=== PATIENT | female | born 1975 | race Caucasian/White ===

== ENCOUNTER 2016-09-24 07:40 | Emergency (ER) | payer OTHER ==
[~2016-09-24] VITALS: Ht 172.7 cm; Wt 73.6 kg
[~2016-09-24 07:40] MED LIST: ZOLO100T
[2016-09-24] MEDS ORDERED: ASPIRIN 81 MG CHEW TABLET PO ONE (08:30)
[2016-09-24 08:37] LABS: BASO % 0.4 % (0.0-1.0); CONTROL LINE HCG INT CTR LINE PRESENT; EOS # 0.2 K/mm3 (0.0-0.50); EOS % 2.2 % (0.0-3.0); LARGE UNSTAINED CELL # 0.1 K/mm3 (0.0-0.4); LARGE UNSTAINED CELL % 0.9 % (0.0-4.0); LYMPH # 2.1 K/mm3 (1.5-4.5); LYMPH % 24.8 % (24.0-44.0); MEAN CORPUSCULAR HEMOGLOBIN 32.7 pg (27.0-33.0); MEAN CORPUSCULAR HGB CONC 35.3 g/dl (32.0-36.5); MEAN CORPUSCULAR VOLUME 92.7 fl (80.0-96.0); MONO # 0.4 K/mm3 (0.0-0.8); MONO % 4.6 % (0.0-5.0); NEUTROPHILS # 5.4 K/mm3 (1.8-7.7); NEUTROPHILS % 67.1 % (36.0-66.0); PLATELET COUNT, AUTOMATED 154 k/mm3 (150-450); RED CELL DISTRIBUTION WIDTH 12.6 % (11.5-14.5); WHITE BLOOD COUNT 8.1 K/mm3 (4.0-10.0)
[2016-09-24 08:42] LABS: ALBUMIN 3.4 GM/DL (3.2-5.2); ALBUMIN/GLOBULIN RATIO 1.17 (1.00-1.93); ALKALINE PHOSPHATASE 79 U/L (45-117); ALT/SGPT 11 U/L (12-78); ANION GAP 4 MEQ/L (8-16); AST/SGOT 10 U/L (15-37); BILIRUBIN,DIRECT < 0.1 MG/DL (0.0-0.2); BILIRUBIN,TOTAL 0.5 MG/DL (0.2-1.0); BLOOD UREA NITROGEN 10 MG/DL (7-18); CARBON DIOXIDE LEVEL 26 MEQ/L (21-32); CHLORIDE LEVEL 109 MEQ/L (98-107); CREATININE FOR GFR 0.61 MG/DL (0.55-1.02); GLOMERULAR FILTRATION RATE > 60.0 (>58); GLUCOSE, FASTING 85 MG/DL (70-105); POTASSIUM SERUM 3.9 MEQ/L (3.5-5.1); SODIUM LEVEL 139 MEQ/L (136-145); TOTAL PROTEIN 6.3 GM/DL (6.4-8.2)
--- NOTE | 2016-09-24 09:02 | REP ---
Clinical: Chest pain . Comparison: None . Findings: The mediastinum and cardiac silhouette are stable and within normal limits for portable technique. The lung solorzano are clear without acute consolidation, effusion, or pneumothorax. Skeletal structures are intact. Impression: No acute cardiopulmonary process appreciated. Signed by Hossein Briceno MD 09/24/2016 08:54 A
[2016-09-24 13:21] VITALS: BP 117/69
--- NOTE | 2016-09-24 20:53 | ECGEPIP ---
Stationary ECG Study [facility] - ED Test Date: 2016-09-24 Pat Name: ESTELLA CHRISTIAN Department: Room: - Gender: F Small Animal Caretaker: rn : 1975 Requested By: Dayo Bah Order Number: [id number] Reading MD: Isabelle Henning Measurements Intervals [place] Rate: 73 P: 62 NV: 124 QRS: 57 QRSD: 90 T: 48 QT: 375 QTc: 415 Interpretive Statements SINUS RHYTHM NO PRIOR FOR COMPARISON Electronically Signed On 09-24-2016 20:52:49 EDT by Isabelle Henning
--- NOTE | 2016-09-24 20:54 | ECGEPIP ---
Stationary ECG Study [facility] - ED Test Date: 2016-09-24 Pat Name: ESTELLA CHRISTIAN Department: Room: - Gender: F Agile Java Developer: rn : 1975 Requested By: Dayo Bah Order Number: [id number] Reading MD: Isabelle Henning Measurements Intervals [place] Rate: 75 P: 61 MI: 130 QRS: 51 QRSD: 89 T: 42 QT: 380 QTc: 425 Interpretive Statements SINUS RHYTHM NSTTW ABNORMALITY Electronically Signed On 09-24-2016 20:54:27 EDT by Isabelle Henning
--- NOTE | 2016-09-24 20:57 | ECGEPIP ---
Stationary ECG Study [facility] - ED Test Date: 2016-09-24 Pat Name: ESTELLA CHRISTIAN Department: Room: - Gender: F Mechanical Development Engineer: tk : 1975 Requested By: Dayo Bah Order Number: [id number] Reading MD: Isabelle Henning Measurements Intervals [place] Rate: 51 P: 67 [place]: 128 QRS: 68 QRSD: 88 T: 52 QT: 430 QTc: 399 Interpretive Statements SINUS BRADYCARDIA Electronically Signed On 09-24-2016 20:57:49 EDT by Isabelle Henning
== END 2016-09-24 13:35 | disposition home or self-care (01) ==
LOC: M ED 07:40
DX: R07.89 Other chest pain (principal); F17.200 Nicotine dependence, unspecified, uncomplicated; R00.1 Bradycardia, unspecified; R94.31 Abnormal electrocardiogram [ECG] [EKG]; Z88.2 Allergy status to sulfonamides

== ENCOUNTER 2017-06-20 20:59 | Emergency (ER) | payer OTHER | END 2017-06-20 23:47 | disposition left against medical advice (07) | LOC: M ED 20:59 | DX: Z53.29 Procedure and treatment not carried out because of patient's decision for other reasons (principal) ==

== ENCOUNTER → 2017-12-27 | Outpatient (CLI) | payer OTHER | LOC: M ADAMS 10:59 | DX: M54.2 Cervicalgia (principal) | CPT/HCPCS: 72050 ==

== ENCOUNTER → 2018-01-23 | Outpatient (REF) | payer OTHER ==
[2018-01-23 13:24] LABS: BASO % 0.4 % (0.0-1.0); EOS # 0.1 10^3/uL (0.0-0.50); EOS % 1.2 % (0.0-3.0); HEMATOCRIT 42.4 % (36.0-47.0); HEMOGLOBIN 14.5 g/dl (12.0-15.5); IMMATURE GRANULOCYTE % 0.3 % (0-3.0); LYMPH # 2.2 10^3/uL (1.5-4.5); MEAN CORPUSCULAR HEMOGLOBIN 33.2 pg (27.0-33.0); MEAN CORPUSCULAR HGB CONC 34.2 g/dl (32.0-36.5); MONO # 0.6 10^3/uL (0.0-0.8); MONO % 6.4 % (0.0-5.0); NEUTROPHILS # 6.9 10^3/uL (1.8-7.7); NEUTROPHILS % 69.7 % (36.0-66.0); PLATELET COUNT, AUTOMATED 185 10^3/uL (150-450); RED BLOOD COUNT 4.37 10^6/uL (4.00-5.40); RED CELL DISTRIBUTION WIDTH 14.1 % (11.5-14.5)
[2018-01-23 14:23] LABS: ALBUMIN 3.5 GM/DL (3.2-5.2); ALBUMIN/GLOBULIN RATIO 1.21 (1.00-1.93); ALKALINE PHOSPHATASE 107 U/L (45-117); ALT/SGPT 16 U/L (12-78); ANION GAP 9 MEQ/L (8-16); AST/SGOT 13 U/L (7-37); BILIRUBIN,TOTAL 0.6 MG/DL (0.2-1.0); BLOOD UREA NITROGEN 11 MG/DL (7-18); CALCIUM LEVEL 8.4 MG/DL (8.5-10.1); CARBON DIOXIDE LEVEL 24 MEQ/L (21-32); CHLORIDE LEVEL 108 MEQ/L (98-107); CHOLESTEROL LEVEL 200 MG/DL (<200); CHOLESTEROL RISK RATIO 3.703 (<5); CREATININE FOR GFR 0.71 MG/DL (0.55-1.30); GLOMERULAR FILTRATION RATE > 60.0 (>58); GLUCOSE, FASTING 74 MG/DL (70-100); HDL CHOLESTEROL 54 MG/DL (>40); LDL CHOLESTEROL 119 MG/DL (<100); NON-HDL-C 146 MG/DL; POTASSIUM SERUM 4.4 MEQ/L (3.5-5.1); SODIUM LEVEL 141 MEQ/L (136-145); TOTAL 25(OH) VITAMIN D 14.8 NG/ML (30.0-100.0); TOTAL PROTEIN 6.4 GM/DL (6.4-8.2); TRIGLYCERIDES LEVEL 135 MG/DL (<150)
== END ==
LOC: M SFHCADAM 08:27
DX: Z13.220 Encounter for screening for lipoid disorders (principal); Z13.0 Encounter for screening for diseases of the blood and blood-forming organs and certain disorders involving the immune mechanism

== ENCOUNTER → 2019-02-06 | Outpatient (REF) | payer OTHER ==
[~2019-02-06] MED LIST changes: +IBUP-1022 PO; +NAPR-885 PO
== END ==
LOC: M SFHCADAM 09:37
PROVIDERS: ATTEND Physician Assistant Medical
DX: E55.9 Vitamin D deficiency, unspecified (principal)

== ENCOUNTER → 2019-07-13 | Outpatient (CLI) | payer OTHER ==
[~2019-07-13] MED LIST changes: +GASTROGRAFIN SOLUTION 30ML (Q9963) As Ordered ONE; +ISOVUE-370 76% 100ML VIAL As Ordered ONE
--- NOTE | 2019-07-13 15:36 | REP ---
REASON: Left lower quadrant pain. PRIORS: None. CONTRAST: 100 mL Isovue-370. The lung bases are clear. The liver, gallbladder, spleen, pancreas, and adrenal glands are unremarkable. There is an incidental millimeter sized cyst in the anterior segment of the right lobe of the liver and an even smaller cyst in the medial segment of the left lobe. Small focal areas of low density are seen in each kidney, the largest is in the superior pole of the right kidney measuring 1.3 cm and having water density Hounsfield unit readings. The other focal areas of low density are too small for precise CT characterization, but likely represent tiny renal cortical cysts. The abdominal aorta and para-aortic regions are within normal limits. There is no free fluid or free air in the abdomen. The intra-abdominal bowel loops and their mesenteries are within normal limits. CT PELVIS: In the left hemipelvis, there are two wall enhancing low density structures, the largest of which measures approximately 1.6 cm. These abut one another and have higher than water density Hounsfield unit readings. In the right posterior hemipelvis, there is a non wall enhancing 2.4 cm sized low density structure which has water density Hounsfield unit readings. No free air or free fluid is seen in the pelvis. There is no pelvic adenopathy. Bone window technique throughout the examination shows the osseous structures to be within normal limits. IMPRESSION: 1. Complex, probably hemorrhagic left ovarian dominant follicle/cyst. 2. Simple right ovarian dominant follicle/small cyst. 3. Simple bilateral renal cysts are suspected, as described above. 4. Incidental tiny hepatic cysts. Electronically Signed by Adelfo Morales DO 07/13/2019 03:43 P
== END ==
LOC: M RAD 09:25
PROVIDERS: ATTEND Physician Assistant Medical
DX: R10.31 Right lower quadrant pain (principal); R11.0 Nausea; K76.89 Other specified diseases of liver; N83.202 Unspecified ovarian cyst, left side; N83.201 Unspecified ovarian cyst, right side
CPT/HCPCS: 74177; Q9963; Q9967

== ENCOUNTER → 2019-08-01 | Outpatient (REF) | payer OTHER ==
[~2019-08-01] MED LIST changes: -GASTROGRAFIN SOLUTION 30ML (Q9963) As Ordered ONE; -ISOVUE-370 76% 100ML VIAL As Ordered ONE
== END ==
LOC: M PLALAB 10:14
PROVIDERS: ATTEND Obstetrics & Gynecology
DX: N93.9 Abnormal uterine and vaginal bleeding, unspecified (principal); Z53.8 Procedure and treatment not carried out for other reasons

== ENCOUNTER → 2019-08-22 | Outpatient (CLI) | payer OTHER ==
[2019-08-22 17:47] LABS: HEMATOCRIT 44.7 % (36.0-47.0); HEMOGLOBIN 15.5 g/dl (12.0-15.5); MEAN CORPUSCULAR HEMOGLOBIN 34.1 pg (27.0-33.0); MEAN CORPUSCULAR HGB CONC 34.7 g/dl (32.0-36.5); MEAN CORPUSCULAR VOLUME 98.2 fl (80.0-96.0); PLATELET COUNT, AUTOMATED 217 10^3/uL (150-450); RED BLOOD COUNT 4.55 10^6/uL (4.00-5.40)
[2019-08-22 17:56] LABS: FREE T4 0.94 NG/DL (0.76-1.46); THYROID STIMULATING HORMONE 1.58 uIU/ML (0.358-3.740)
== END ==
LOC: M PLALAB 14:13
PROVIDERS: ATTEND Obstetrics & Gynecology
DX: N93.9 Abnormal uterine and vaginal bleeding, unspecified (principal); R87.618 Other abnormal cytological findings on specimens from cervix uteri

== ENCOUNTER → 2019-09-07 | Outpatient (CLI) | payer OTHER ==
[~2019-09-07] MED LIST changes: +OMEP-221 PO; +PERCOCET PO; +VITA50005 PO
== END ==
LOC: M LABSMTC 09:39
PROVIDERS: ATTEND Anesthesiology
DX: Z01.818 Encounter for other preprocedural examination (principal); Z11.59 Encounter for screening for other viral diseases
CPT/HCPCS: C9803; U0003

== ENCOUNTER 2019-09-10 07:00 | Day surgery (SDC) | payer OTHER ==
[~2019-09-10] VITALS: Ht 172.7 cm; Wt 79.1 kg
[~2019-09-10 07:00] MED LIST changes: +LR 1,000 ML IV ONE; -PERCOCET PO; +ceFAZolin SOD 2 GM in IV 1 EA IV ONE
[2019-09-10] MEDS ORDERED: METHYLENE BLUE 0.5% (5MG/ML) 10 ML AMP (PROVAYBLUE) As Ordered ONE (07:11)
[2019-09-10] MEDS ORDERED: BUPIVACAINE HCL 0.25% 30ML VIAL As Ordered ONE (07:11)
[2019-09-10] MEDS ORDERED: ROCURONIUM BROMIDE 50 MG/5 ML VIAL As Ordered ONE ×2 (07:23→08:28)
[2019-09-10] MEDS ORDERED: fentaNYL 250 MCG/5 ML INJECTION (J3010) As Ordered ONE (07:23)
[2019-09-10] MEDS ORDERED: MIDAZOLAM INJ 2MG/2ML VIAL (J2250 PER 1MG) As Ordered ONE (07:23)
[2019-09-10] MEDS ORDERED: propofoL 200 MG/20 ML VIAL As Ordered ONE (07:23)
[2019-09-10] MEDS ORDERED: LIDOCAINE 2% 100MG/5ML SDV (FOR ANES.) As Ordered ONE (07:23)
[2019-09-10] MEDS ORDERED: dexameTHASONE 4 MG/ML 1ML VIAL (J1100 PER 1MG) As Ordered ONE (07:23)
[2019-09-10 07:38] LABS: HEMATOCRIT 46.6 % (36.0-47.0); HEMOGLOBIN 16.1 g/dl (12.0-15.5); MEAN CORPUSCULAR HGB CONC 34.5 g/dl (32.0-36.5); MEAN CORPUSCULAR VOLUME 98.5 fl (80.0-96.0); PLATELET COUNT, AUTOMATED 204 10^3/uL (150-450); RED BLOOD COUNT 4.73 10^6/uL (4.00-5.40); WHITE BLOOD COUNT 8.6 10^3/uL (4.0-10.0)
[2019-09-10] MEDS ORDERED: LACRILUBE (AKWA TEARS) OPHTH OINT 3.5 GM As Ordered ONE (08:00)
[2019-09-10] MEDS ORDERED: ACETAMINOPHEN 1000MG 100ML IV BTL (OFIRMEV) (J0131 PER 10MG) As Ordered ONE (08:18)
[2019-09-10] MEDS ORDERED: METOCLOPRAMIDE INJ 10MG/2ML VIAL (J2765 PER 1) As Ordered ONE (08:37)
[2019-09-10] MEDS ORDERED: HYDROmorphone HCL 2 MG/ML 1ML VIAL (J1170) As Ordered ONE (09:04)
[2019-09-10] MEDS ORDERED: SUGAMMADEX SODIUM 500 MG/5 ML VIAL (BRIDION) As Ordered ONE (09:46)
[2019-09-10] MEDS ORDERED: PROMETHAZINE INJ 25 MG/ML VIAL (J2550) IV PRN (10:30)
[2019-09-10] MEDS ORDERED: LR 1,000 ML IV SCH ×2 (10:30)
[2019-09-10] MEDS ORDERED: fentaNYL 100 MCG/2 ML INJECTION (J3010) IV PRN (10:30)
[2019-09-10] MEDS ORDERED: oxyCODONE 5MG TAB PO PRN (10:30)
[2019-09-10] MEDS ORDERED: ONDANSETRON 4MG/2ML VIAL IV PRN (10:30)
[2019-09-10] MEDS ORDERED: PERCOCET 5MG/325MG TAB PO PRN ×2 (10:30)
--- NOTE | 2019-09-10 10:56 | ROOPDOC ---
[facility] Report Of Operation Report of Operation DATE OF PROCEDURE: 09/10/19 PREOPERATIVE DIAGNOSIS: 1. Pelvic pain. 2. Dysmenorrhea. 3. Abnormal uterine bleeding. POSTOPERATIVE DIAGNOSIS: 1. Pelvic pain. 2. Dysmenorrhea. 3. Abnormal uterine bleeding. 4. Endometriosis PROCEDURE PERFORMED: 1. Robotic-assisted laparoscopic hysterectomy with bilateral salpingo-oophorectomy. 2. Cystoscopy. SURGEON: Joanie Ruiz MD TROLLEY COLLECTOR: Jocelyn Dan NP ANESTHESIA: General endotracheal anesthesia. ESTIMATED BLOOD LOSS: 150 mL. INTRAVENOUS FLUIDS: 1500 mL lactated Ringer's solution. URINE OUTPUT: 50 mL. SPECIMEN: Cervix, uterus, bilateral fallopian tubes, and ovaries. PREOPERATIVE ANTIBIOTICS: 2 grams of Ancef. INFECTION CLASSIFICATION: 2. OPERATIVE FINDINGS: Densely adherent right ovary to the posterior cul-de-sac, posterior cul-de-sac was partially obliterated with endometriosis. Normal- appearing left ovary and uterus CYSTOSCOPIC FINDINGS: Revealed normal bladder mucosa. No foreign bodies were observed. Bilateral ureteral jets were observed during the cystoscopy. DESCRIPTION OF OPERATION: After informed consent was obtained and written consent was reviewed, the patient brought to the operating room where general endotracheal anesthesia was obtained. She was then placed in lithotomy position and was prepped and draped in a normal sterile fashion. A time out in the operating room was then performed identifying the patient, the procedure be performed, as well as, drug allergies. Speculum was then placed revealing the cervix. Anterior and posterior aspect of the cervix stitched with #0 Vicryl. The uterus then sounded to. 8 cm. A large VCare uterine manipulator was advanced through cervical os for means to manipulate the uterus. Uterine balloon was then insufflated with 7 mL of air. The cervical cap was placed over the cervix and the vaginal sleeve was advanced down into the vagina. Instruments were then removed. A Sinclair catheter was placed and set to gravity. Gloves were changed. Attention was turned to the patient's abdomen where a Veress needle was placed through the umbilicus. A pneumoperitoneum was then obtained with CO2 gas. The supraumbilical area was then infused 0.25% Marcaine and incision was made in this area. 8 mm trocar and sleeve was advanced through this incision. The laparoscope was then replaced revealing intra-abdominal placement. Three additional port sites were placed, one to the patient's right side of her umbilicus and two to the left side. Each one of these port sites were infused with 0.25% Marcaine Incision was made in each one of these areas and 8 mm trocars and sleeves were advanced through each one of these incisions under direct visualization. Next, da David was then advanced to the patient's table and was docked utilizing the camera arm and two operative arms. Using a vessel sealer, the infundibulopelvic ligament bilaterally was cauterized and ligated with good hemostasis noted. Further dissection using a vessel sealer was done along the round ligaments bilaterally. The anterior lip of the broad ligaments were then skeletonized along the bladder creating a bladder flap. The remainder of the broad and cardinal ligaments were then cauterized and ligated with good hemostasis noted. The uterine arteries were then skeletonized bilaterally and cauterized and ligated with good hemostasis noted. Vessel sealer was then replaced with the monopolar scissor. Anterior and posterior colpotomies were made. The uterus was then removed vaginally with good hemostasis noted. The vaginal cuff was then closed using a #2-0 V-Loc system in a running fashion. Surgical sites then inspected and found to be hemostatic. The abdomen was then irrigated and suctioned. Megan was then applied over the surgical solorzano. Next, cystoscopy was then performed. Sinclair catheter was removed from the patient's bladder. The cystoscope was advanced transurethrally through the bladder. Cystoscopy was then performed revealing normal bladder mucosa, bilateral jets were observed and no foreign bodies. The bladder was then drained. Gloves were changed. Attention was turned to the patient's abdomen where all four skin incisions closed with #4-0 Monocryl was dressed with Dermabond. The patient was then taken out of lithotomy position, was awakened general anesthesia and taken to recovery in stable condition. Jocelyn Dan, my registered nurse surgical services, played an essential role during surgery. She assisted with port placement, tissue retraction and identification of structures, as well as, incision closure. Counts were correct. JOANIE RUIZ MD. Sep 10, 2019 10:56
[2019-09-10 12:00] VITALS: BP 143/88
[2019-09-10 12:30] VITALS: BP 139/86
[2019-09-10 13:30] VITALS: BP 132/80
[2019-09-10 14:30] VITALS: BP 140/82
[2019-09-10 15:30] VITALS: BP 126/68
[2019-09-10] MEDS ORDERED: KETOROLAC 30 MG/ML 1ML VIAL IV PRN (16:00)
[2019-09-10 16:30] VITALS: BP 146/88
[2019-09-10] MEDS ORDERED: PERCOCET PO (17:44)
== END 2019-09-10 17:45 | disposition home or self-care (01) ==
LOC: M SDC 07:00 → M PED 11:55 → M SDC 17:45
PROVIDERS: ATTEND Obstetrics & Gynecology
DX: N94.6 Dysmenorrhea, unspecified (principal); N92.0 Excessive and frequent menstruation with regular cycle; R10.2 Pelvic and perineal pain; N72 Inflammatory disease of cervix uteri; N80.0 Endometriosis of uterus; K21.9 Gastro-esophageal reflux disease without esophagitis; Z79.899 Other long term (current) drug therapy; Z88.2 Allergy status to sulfonamides
CPT/HCPCS: 36415; 58571; 85027; 86850; 86900; 86901; 88307; J0131; J0690; J1100; J1170; J2250; J2765; J3010; Q9968

== ENCOUNTER → 2020-02-25 | Outpatient (REF) | payer OTHER ==
[~2020-02-25] MED LIST changes: -LR 1,000 ML IV ONE; +PERCOCET PO; -ceFAZolin SOD 2 GM in IV 1 EA IV ONE
[2020-02-25 12:51] LABS: BASO # 0.1 10^3/uL (0.0-0.2); BASO % 0.5 % (0.0-1.0); EOS # 0.2 10^3/uL (0.0-0.5); HEMATOCRIT 48.2 % (36.0-47.0); HEMOGLOBIN 15.8 g/dl (12.0-15.5); LYMPH # 2.4 10^3/uL (1.5-5.0); LYMPH % 24.5 % (24.0-44.0); MEAN CORPUSCULAR HEMOGLOBIN 33.4 pg (27.0-33.0); MEAN CORPUSCULAR HGB CONC 32.8 g/dl (32.0-36.5); MEAN CORPUSCULAR VOLUME 101.9 fl (80.0-96.0); MONO # 0.7 10^3/uL (0.0-0.8); MONO % 6.7 % (0.0-5.0); NEUTROPHILS # 6.5 10^3/uL (1.5-8.5); PLATELET COUNT, AUTOMATED 207 10^3/uL (150-450); RED BLOOD COUNT 4.73 10^6/uL (4.00-5.40); WHITE BLOOD COUNT 9.9 10^3/uL (4.0-10.0)
[2020-02-25 13:26] LABS: ALBUMIN 3.7 GM/DL (3.2-5.2); ALT/SGPT 32 U/L (12-78); BILIRUBIN,TOTAL 0.5 MG/DL (0.2-1.0); BLOOD UREA NITROGEN 7 MG/DL (7-18); CALCIUM LEVEL 8.7 MG/DL (8.5-10.1); CARBON DIOXIDE LEVEL 29 MEQ/L (21-32); CHLORIDE LEVEL 109 MEQ/L (98-107); CHOLESTEROL LEVEL 250 MG/DL (<200); CHOLESTEROL RISK RATIO 4.716 (<5); CREATININE FOR GFR 0.91 MG/DL (0.55-1.30); GLOMERULAR FILTRATION RATE > 60.0 (>58); GLUCOSE, FASTING 81 MG/DL (70-100); HDL CHOLESTEROL 53 MG/DL (>40); LDL CHOLESTEROL 161 MG/DL (<100); NON-HDL-C 197 MG/DL; POTASSIUM SERUM 5.1 MEQ/L (3.5-5.1); SODIUM LEVEL 141 MEQ/L (136-145); TOTAL 25(OH) VITAMIN D 25.8 NG/ML (30.0-100.0); TOTAL PROTEIN 6.9 GM/DL (6.4-8.2); TRIGLYCERIDES LEVEL 178 MG/DL (<150)
== END ==
LOC: M SFHCADAM 08:17
PROVIDERS: ATTEND Physician Assistant Medical
DX: F33.42 Major depressive disorder, recurrent, in full remission (principal); F17.210 Nicotine dependence, cigarettes, uncomplicated; E55.9 Vitamin D deficiency, unspecified

== ENCOUNTER → 2020-08-19 | Outpatient (CLI) | payer OTHER ==
--- NOTE | 2020-08-19 09:10 | REP ---
INDICATION: ACUTE PAIN OF LEFT KNEE COMPARISON: None. TECHNIQUE: AP, lateral, bilateral oblique and sunrise views. FINDINGS: The osseous structures and joint spaces are intact and normal. There is no evidence for acute fracture or dislocation. No joint effusion is appreciated. Surrounding soft tissues are unremarkable. No subcutaneous emphysema or radiodense foreign body. IMPRESSION: Normal examination. No acute fracture or dislocation. <Electronically signed by Hossein Briceno > 08/19/20 [id number]
== END ==
LOC: M ADAMS 08:38
PROVIDERS: ATTEND Physician Assistant
DX: M25.562 Pain in left knee (principal)

== ENCOUNTER → 2020-10-22 | Outpatient (CLI) | payer OTHER ==
[~2020-10-22] MED LIST changes: +ERGO500029 PO; -VITA50005 PO
--- NOTE | 2020-10-22 11:40 | REP ---
INDICATION: LT KNEE PAIN ? MEDIAL MENISCUS. COMPARISON: Radiographs 08/19/2020. TECHNIQUE: Multiple sequences obtained in the axial, coronal and sagittal planes. FINDINGS: Menisci: Intact, no tear. Cruciate ligaments: Intact. Collateral ligaments: Intact. Extensor mechanism/patellar retinacula: Intact. Cartilage: Smooth, no osteochondral defect. There is mild global chondromalacia. Bone marrow: Normal signal, no edema or occult fracture. Joint fluid: There is a [id number] joint effusion. Popliteal region: Lobulated Mai's cyst in the medial popliteal fossa has a maximum craniocaudal length of approximately 5.0 cm, a maximum width approximately 1 cm. Mild edema in the medial gastrocnemius muscle suggests a strain. IMPRESSION: No evidence of internal derangement. Suspect strain of the medial head of gastrocnemius muscle. Mild to moderate joint effusion. Mai's cyst. <Electronically signed by Berry Delarosa > 10/22/20 [id number]
== END ==
LOC: M RAD 08:02
PROVIDERS: ATTEND Orthopaedic Surgery Adult Reconstructive Orthopaedic Surgery
DX: S83.242A Other tear of medial meniscus, current injury, left knee, initial encounter (principal)

== ENCOUNTER → 2021-04-15 | Outpatient (REF) ==
[~2021-04-15] MED LIST changes: -OMEP-221 PO; +OMEP40CA5 PO
== END ==
LOC: M PLAIMG 09:55
PROVIDERS: ATTEND Internal Medicine
DX: Z00.00 Encounter for general adult medical examination without abnormal findings (principal)

== ENCOUNTER → 2021-05-18 | Outpatient (REF) | payer OTHER ==
[2021-05-18 12:53] LABS: BASO % 0.5 % (0.0-1.0); EOS # 0.2 10^3/uL (0.0-0.5); EOS % 2.4 % (0.0-3.0); HEMATOCRIT 51.2 % (36.0-47.0); HEMOGLOBIN 17.3 g/dl (12.0-15.5); LYMPH # 2.7 10^3/uL (1.5-5.0); LYMPH % 30.4 % (24.0-44.0); MEAN CORPUSCULAR HEMOGLOBIN 33.4 pg (27.0-33.0); MEAN CORPUSCULAR HGB CONC 33.8 g/dl (32.0-36.5); MEAN CORPUSCULAR VOLUME 98.8 fl (80.0-96.0); MONO # 0.7 10^3/uL (0.0-0.8); MONO % 7.6 % (2.0-8.0); NEUTROPHILS # 5.2 10^3/uL (1.5-8.5); NEUTROPHILS % 58.8 % (36.0-66.0); PLATELET COUNT, AUTOMATED 208 10^3/uL (150-450); RED BLOOD COUNT 5.18 10^6/uL (4.00-5.40); WHITE BLOOD COUNT 8.8 10^3/uL (4.0-10.0)
[2021-05-18 14:24] LABS: ALBUMIN 3.6 GM/DL (3.2-5.2); ALT/SGPT 27 U/L (12-78); BILIRUBIN,TOTAL 0.7 MG/DL (0.2-1.0); BLOOD UREA NITROGEN 13 MG/DL (7-18); CARBON DIOXIDE LEVEL 30 MEQ/L (21-32); CHLORIDE LEVEL 106 MEQ/L (98-107); CHOLESTEROL LEVEL 294 MG/DL (<200); CHOLESTEROL RISK RATIO 6.391 (<5); CREATININE FOR GFR 0.78 MG/DL (0.55-1.30); GLOMERULAR FILTRATION RATE > 60.0 (>58); GLUCOSE, FASTING 85 MG/DL (70-100); HDL CHOLESTEROL 46 MG/DL (>40); LDL CHOLESTEROL 186 MG/DL (<100); NON-HDL-C 248 MG/DL; POTASSIUM SERUM 4.7 MEQ/L (3.5-5.1); SODIUM LEVEL 139 MEQ/L (136-145); TRIGLYCERIDES LEVEL 311 MG/DL (<150)
== END ==
LOC: M SFHCADAM 09:17
PROVIDERS: ATTEND Physician Assistant Medical
DX: F33.42 Major depressive disorder, recurrent, in full remission (principal); E55.9 Vitamin D deficiency, unspecified; E78.2 Mixed hyperlipidemia

== ENCOUNTER → 2022-01-15 | Outpatient (CLI) | payer OTHER | LOC: M SOG 08:32 | PROVIDERS: ATTEND Orthopaedic Surgery Adult Reconstructive Orthopaedic Surgery | DX: M25.561 Pain in right knee (principal) ==

== ENCOUNTER → 2022-03-31 | Outpatient (CLI) | payer OTHER | LOC: M ADAMS 10:33 | PROVIDERS: ATTEND Physician Assistant Medical | DX: M54.2 Cervicalgia (principal); M54.6 Pain in thoracic spine; M54.50 Low back pain, unspecified ==

== ENCOUNTER → 2022-03-31 | Outpatient (REF) | payer OTHER | LOC: M SFHCADAM 10:27 | PROVIDERS: ATTEND Physician Assistant Medical | DX: M54.50 Low back pain, unspecified (principal); M54.2 Cervicalgia; M54.6 Pain in thoracic spine ==

== ENCOUNTER → 2025-01-07 | Outpatient (CLI) | payer OTHER ==
[~2025-01-07] MED LIST changes: -IBUP-1022 PO; +IBUP600T42 PO
== END ==
LOC: M OUTALCOH 09:31
PROVIDERS: ATTEND Psychiatry & Neurology Psychiatry
DX: Z03.89 Encounter for observation for other suspected diseases and conditions ruled out (principal)

== ENCOUNTER 2025-01-17 09:00 | Outpatient (RCR) | payer OTHER | END 2025-01-18 | LOC: M OUTALCOH 09:00 | PROVIDERS: ATTEND Psychiatry & Neurology Psychiatry | DX: F10.10 Alcohol abuse, uncomplicated (principal) ==

== ENCOUNTER 2025-02-13 09:56 | Outpatient (RCR) | payer OTHER | END 2025-02-17 | LOC: M OUTALCOH 09:56 | PROVIDERS: ATTEND Psychiatry & Neurology Psychiatry | DX: F10.10 Alcohol abuse, uncomplicated (principal) ==

== ENCOUNTER 2025-03-13 10:00 | Outpatient (RCR) | payer OTHER | END 2025-03-20 | LOC: M OUTALCOH 10:00 | PROVIDERS: ATTEND Psychiatry & Neurology Psychiatry | DX: F10.10 Alcohol abuse, uncomplicated (principal) ==